=== PATIENT | female | born 1980 | race African-American/Black ===

== ENCOUNTER 2024-02-18 03:11 | Inpatient (IN) | payer OTHER ==
[2024-02-15 12:07] LABS: Hematocrit 40.5 % (34.9-44.5); Hemoglobin 13.5 g/dL (12.0-15.5); Platelet Count 232 10x3/uL (150-450)
[2024-02-15 12:38] LABS: HBsAg Index 0.24 S/CO (0-0.99); Hep B Surf Ag Non-Reactive S/CO (NonReactive)
[2024-02-15 14:05] LABS: Syphilis Antibody INDETERMINATE (Nonreactive); Syphilis Antibody Index 11.74 S/CO (<1.00 Non-Reactive)
[2024-02-15 14:13] LABS: Syphilis Titer Non-Reactive Titer (Negative)
[2024-02-18 03:45] VITALS: BMI 34.6
[2024-02-18] MEDS ORDERED: Carboprost 250 MCG/ML AMP IM PRN (04:02)
[2024-02-18] MEDS ORDERED: Tranexamic Acid 1,000 MG/10 ML VIAL IVP PRN (04:02)
[2024-02-18] MEDS ORDERED: hydrALAZINE 20 MG/ML VIAL SLOW IVP PRN ×2 (04:02→08:26)
[2024-02-18] MEDS ORDERED: Misoprostol 200 MCG TAB PR PRN (04:02)
[2024-02-18] MEDS ORDERED: Promethazine HCl 25 MG/ML VIAL IM PRN ×2 (04:02→06:52)
[2024-02-18] MEDS ORDERED: Ondansetron PF 4 MG/2 ML Vial IVP PRN (04:02)
[2024-02-18] MEDS ORDERED: Famotidine/PF 20 mg/2ml Vial SLOW IVP PRN (04:02)
[2024-02-18] MEDS ORDERED: Bicitra 30 ML UDCUP PO PRN (04:02)
[2024-02-18] MEDS ORDERED: CEFAZOLIN 2 GM in Sodium Chloride 0.9% 100 ML IVPB SCH (04:15)
[2024-02-18] MEDS ORDERED: Lactated Ringer's 1,000 ML IV SCH (04:15)
[2024-02-18] MEDS ORDERED: Azithromycin 500 MG in Sodium Chloride 0.9% 250 ML 250 ML IVPB SCH (04:15)
[2024-02-18] MEDS ORDERED: Oxytocin 30 units/NS 500 ML 500 ML IV SCH (04:15)
[2024-02-18] MEDS ORDERED: Lactated Ringer's 500 ML IV PRN (06:52)
[2024-02-18] MEDS ORDERED: diphenhydrAMINE 50 MG/ML VIAL IVP PRN (06:52)
[2024-02-18] MEDS ORDERED: Moisturizing Cream (Eucerin) 113 GM JAR TOP PRN (06:52)
[2024-02-18] MEDS ORDERED: Acetaminophen 325 MG TAB PO PRN (06:52)
[2024-02-18] MEDS ORDERED: ePHEDrine Sulfate 50 MG/10 ML VIAL SLOW IVP PRN (06:52)
[2024-02-18] MEDS ORDERED: Naloxone HCl 0.4 mg/ml Vial IVP PRN ×2 (06:52)
[2024-02-18] MEDS ORDERED: Communication Order-Pharmacy FS SCH (07:00)
[2024-02-18] MEDS ORDERED: fentaNYL 2 mcg/Ropivacaine 0.2% Epidural 100 ML CADD EPIDURAL SCH (07:00)
[2024-02-18] MEDS ORDERED: Lanolin Ointment 7 GM TUBE TOP PRN (08:26)
[2024-02-18] MEDS ORDERED: diphenhydrAMINE 25 MG CAP PO PRN (08:26)
[2024-02-18] MEDS: Morphine PF 10 MG/10 ML VIAL ONE (08:58)
[2024-02-18] MEDS: Ketorolac Tromethamine 30 MG (1 mL) VIAL ONE (08:58)
[2024-02-18] MEDS: Ondansetron PF 4 MG/2 ML Vial ONE (08:58)
[2024-02-18] MEDS: fentaNYL 50 mcg/mL 1 mL Vial ONE (08:58)
[2024-02-18] MEDS: Oxytocin 30 units/NS 500 ML 500 ML ONE (10:36)
[2024-02-18] MEDS: Ondansetron PF 4 MG/2 ML Vial IVP PRN (12:35)
[2024-02-18] MEDS: Labetalol HCl 200 MG TAB PO SCH (14:11)
[2024-02-18] MEDS: Prenatal Vitamin 1 TAB PO SCH (14:11)
[2024-02-18] MEDS: Docusate 100 MG CAP PO SCH (14:11)
[2024-02-18] MEDS: metroNIDAZOLE 500 MG in Premix 1 BAG IVPB SCH (14:12)
[2024-02-18] MEDS: Ibuprofen 800 MG TAB PO SCH (14:12)
[2024-02-18] MEDS: Ketorolac Tromethamine 30 MG (1 mL) VIAL IVP PRN (16:07)
[2024-02-18] MEDS ORDERED: metFORMIN 500 MG TAB PO SCH (17:00)
[2024-02-19 04:18] LABS: Hematocrit 31.3 % (34.9-44.5); Hemoglobin 10.6 g/dL (12.0-15.5); Mean Corpuscular HGB CONC 33.9 g/dL (32.0-36.0); Mean Corpuscular Hemoglobin 28.4 pg (27.0-33.0); Mean Corpuscular Volume 83.9 fL (81.6-98.3); Mean Platelet Volume 11.1 fL (7.4-10.4); Platelet Count 178 10x3/uL (150-450); Red Blood Cell (RBC) Count 3.73 10x6/uL (3.90-5.03); White Blood Cell (WBC) Count 7.5 10x3/uL (3.5-10.5)
[2024-02-19] MEDS: Simethicone Chewable 80 MG TAB PO PRN (05:05)
[2024-02-19] MEDS: HYDROcodone/Acetaminophen 5/325 mg Tablet PO PRN ×2 (08:51→20:45)
[2024-02-19] MEDS: metroNIDAZOLE 500 MG TAB PO SCH (20:45)
[2024-02-19] MEDS: Ibuprofen 800 MG TAB PO SCH (21:15)
[2024-02-20 08:03] VITALS: BP 148/79; TEMP 98.1
== END 2024-02-20 10:39 | disposition home or self-care (01) | DRG 787 ==
LOC: CSHLD 03:11 → CSHPP 11:16
PROVIDERS: ADMIT Family Medicine; ATTEND Obstetrics & Gynecology
PROC: 10D00Z1 Extraction of Products of Conception, Low, Open Approach (ICD-10-PCS; principal; 2024-02-18)
DX: O42.02 Full-term premature rupture of membranes, onset of labor within 24 hours of rupture (principal); O10.92 Unspecified pre-existing hypertension complicating childbirth; O98.12 Syphilis complicating childbirth; O23.593 Infection of other part of genital tract in pregnancy, third trimester; Z3A.37 37 weeks gestation of pregnancy; Z37.0 Single live birth; O34.211 Maternal care for low transverse scar from previous cesarean delivery; O24.425 Gestational diabetes mellitus in childbirth, controlled by oral hypoglycemic drugs; A53.0 Latent syphilis, unspecified as early or late; O09.523 Supervision of elderly multigravida, third trimester; Z79.82 Long term (current) use of aspirin; A59.9 Trichomoniasis, unspecified
CPT/HCPCS: 36415; 51702; 85014; 85018; 85027; 85049; 86593; 86780; 86850; 86900; 86901; 87340; J1885; J2274; J2405; J3010